=== PATIENT | female | born 1970 | race Caucasian/White ===

== ENCOUNTER 2020-08-21 00:43 | Emergency (ER) | payer OTHER ==
[~2020-08-21] VITALS: Ht 160 cm; Wt 100.0 kg
[~2020-08-21 00:43] MED LIST: ALLO100T PO; BUSP15TA PO; FAMO20TA5 PO; FLUD0.1T PO; FLUT9.9S NS; GABA-587 PO; HYDR-2145 PO; HYDR-3108 PO; LEVO88TA4 PO; LOPE2TAB27 PO
--- NOTE | 2020-08-21 01:18 | PHYS DOC ---
Past History Past Medical History: Asthma, Hypothyroid, Other Past Surgical History: Appendectomy, Tonsillectomy, Tubal ligation, Other Alcohol Use: None Drug Use: None General Adult EDM: Chief Complaint: CHEST PAIN HPI: HPI: 49-year-old female presents with sudden onset of central chest pain with started 1 hour prior to arrival. Patient had a snack of animal crackers and then went to lay down. As she was lying there she began to have a central chest heav iness. It is worse with deep breathing. She has some shortness of breath no diaphoresis. She has never had this pain before. It is moderate to severe in intensity. She took a full-strength aspirin prior to arrival. Patient has no cardiac history. She denies having a cardiac cath or stress test. Denies fever or chills. She had gastric sleeve November 2019. Review of Systems: Review of Systems: Constitutional: Denies fever or chills Eyes: Denies change in visual acuity HENT: Denies nasal congestion or sore throat Respiratory: shortness of breath Cardiovascular: Chest pain GI: Denies abdominal pain, nausea, vomiting, bloody stools or diarrhea : Denies dysuria Musculoskeletal: Denies back pain or joint pain Integument: Denies rash Neurologic: Denies headache, focal weakness or sensory changes Endocrine: Denies polyuria or polydipsia Lymphatic: Denies swollen glands Psychiatric: Denies depression or anxiety Allergies: Allergies: Allergies Coded Allergies Type Severity Reaction Last Updated Verified acetaminophen Allergy Intermediate Itching 08/02/14 Yes codeine Allergy Intermediate Rash 07/30/14 Yes hydrocodone Allergy Intermediate 08/21/20 Yes oxycodone Allergy Intermediate Itching 08/02/14 Yes Physical Exam: PE: Constitutional: Well developed, well nourished, morbidly obese, no acute distress, non-toxic appearance. [] HENT: Normocephalic, atraumatic, bilateral external ears normal, oropharynx mois t, no oral exudates, nose normal. [] Eyes: PERRLA, EOMI, conjunctiva normal, no discharge. [] Neck: Normal range of motion, no tenderness, supple, no stridor. [] Cardiovascular: Heart rate 78, regular rhythm, no murmur [] Lungs & Thorax: Bilateral breath sounds clear to auscultation [] Abdomen: Bowel sounds normal, soft, no tenderness, no masses, no pulsatile masses. [] Skin: Warm, dry, no erythema, no rash. [] Back: No tenderness, no CVA tenderness. [] Extremities: No tenderness, no cyanosis, no clubbing, ROM intact, no edema. [] Neurologic: Alert and oriented X 3, normal motor function, normal sensory function, no focal deficits noted. [] Psychologic: Affect normal, judgement normal, mood anxious. [] EKG: EKG: [] Radiology/Procedures: Radiology/Procedures: [] Heart Score: C/O Chest Pain: Yes HEART Score for Chest Pain: HEART Score for Chest Pain Response (Comments) Value History Slighlty/Non-Suspicious 0 ECG Nonspecific Repolarizatio 1 Age >45 - < 65 1 Risk Factors 1 or 2 Risk Factors 1 Troponin < Normal Limit 0 Total 3 Risk Factors: Risk Factors: DM, Current or recent (<one month) smoker, HTN, HLP, family history of CAD, obesity. Risk Scores: Score 0 - 3: 2.5% MACE over next 6 weeks - Discharge Home Score 4 - 6: 20.3% MACE over next 6 weeks - Admit for Clinical Observation Score 7 - 10: 72.7% MACE over next 6 weeks - Early Invasive Strategies Course & Med Decision Making: Course & Med Decision Making Pertinent Labs and Imaging studies reviewed. (See chart for details) The patient's EKG does not show ST elevation. Her labs are unremarkable. Her troponin was negative. Patient was given a GI cocktail on arrival and this significantly improved her pain. I suspect this is breakthrough GERD. I spoke with the patient about her results. She is feeling better. I offered her admission for continued trending of her troponins versus going home and she has elected to go home at this time. I have advised her that if her pain returns in a significant way or new symptoms develop she may need to come back to the emergency room. She has a reliable family member that lives with her and will be home with her all day later today. Her heart score is a 3. I believe it is reasonable for her to go home. I will additionally give the patient 20 mg of Pepcid prior to discharge. She is stable for discharge at this time. [] Soloon Disclaimer: Ryley Disclaimer: This electronic medical record was generated, in whole or in part, using a voice recognition dictation system. Departure Departure: Impression: Primary Impression: Chest pain Qualified Codes: R07.9 - Chest pain, unspecified Additional Impression: GERD (gastroesophageal reflux disease) Qualified Codes: K21.9 - Gastro-esophageal reflux disease without esophagitis Disposition: 01 HOME / SELF CARE / HOMELESS Condition: STABLE Referrals: RADHA SYED (PCP) Patient Instructions: Chest Pain (Nonspecific), [id number], Gastroesophageal Reflux Disease, Adult, [id number] MORRIS PICKERING DO Aug 21, 2020 01:18
[2020-08-21] MEDS: IV NORMAL SALINE 1,000ML 1,000 ML IV ONE (01:28)
[2020-08-21 01:29] LABS: HEMOGLOBIN ISTAT 12.2 gm/dL; POTASSIUM ISTAT 3.4 mmol/L (3.5-5.0)
[2020-08-21] MEDS: LIDO:MAALOX 1:1 20 ML SINGLE DOSE. PO ONE (01:30)
--- NOTE | 2020-08-21 01:37 | RAD ---
EXAM: AP View of the chest DATE: 08/21/2020 1:20 AM INDICATION: Reason: Chest pain / Spl. Instructions: / History: COMPARISON: No Prior FINDINGS: The heart is not enlarged. Mediastinal and hilar contours are normal. No focal parenchymal airspace opacity. No pleural effusion or pneumothorax. IMPRESSION: 1. No radiographic evidence for acute cardiopulmonary process. Electronically signed by: Ezekiel De La Cruz MD (08/21/2020 1:35 AM) ASHLEIGH
[2020-08-21 01:55] LABS: BASO % 1 % (0-3); EOS # 0.2 x10^3/uL (0.0-0.7); EOS % 4 % (0-3); HEMATOCRIT 40.3 % (36.0-47.0); HEMOGLOBIN 13.8 g/dL (12.0-15.5); LYMPH # 1.8 x10^3/uL (1.0-4.8); LYMPH % 32 % (24-48); MEAN CORPUSCULAR HEMOGLOBIN 31 pg (25-35); MEAN CORPUSCULAR HGB CONC 34 g/dL (31-37); MEAN CORPUSCULAR VOLUME 90 fL (79-100); MONO # 0.4 x10^3/uL (0.0-1.1); MONO % 8 % (0-9); NEUT # 3.2 x10^3uL (1.8-7.7); NEUT % 56 % (31-73); PLATELET COUNT 211 x10^3/uL (140-400); RED BLOOD COUNT 4.46 x10^6/uL (3.50-5.40); WHITE BLOOD COUNT 5.6 x10^3/uL (4.0-11.0)
[2020-08-21] MEDS: NITROGLYCERIN SUBLINGUAL 0.4 MG BOTTLE OF 25. SL PRN (02:33)
[2020-08-21 02:38] VITALS: BP 110/64
[2020-08-21] MEDS ORDERED: FAMOTIDINE 20 MG/2 ML VIAL IVP ONE (03:00)
--- NOTE | 2020-08-21 04:50 | EKG ---
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
== END 2020-08-21 02:44 | disposition home or self-care (01) ==
LOC: ER 00:43
DX: R07.89 Other chest pain (principal); K21.9 Gastro-esophageal reflux disease without esophagitis; J45.909 Unspecified asthma, uncomplicated; Z88.6 Allergy status to analgesic agent; Z88.5 Allergy status to narcotic agent; Z98.51 Tubal ligation status
CPT/HCPCS: 36415; 71045; 80047; 84484; 85025; 93005; 96360; 99285; J7030

== ENCOUNTER 2020-11-20 23:55 | Emergency (ER) | payer OTHER ==
[~2020-11-20] VITALS: Ht 160 cm; Wt 98.0 kg
--- NOTE | 2020-11-21 00:07 | PHYS DOC ---
Past History Past Medical History: Asthma, Constipation, Hypothyroid, Other Past Surgical History: Appendectomy, Tonsillectomy, Tubal ligation, Other Additional Past Surgical Histo: Gastric Sleeve Alcohol Use: None Drug Use: None General Adult EDM: Chief Complaint: ABDOMINAL PAIN HPI: HPI: "..I am having severe abdomen pain.. here in my epigastric.. and to the right.. its like some is stabbing me through my stomach clear to my back... And into my right shoulder... I had a gastric sleeve surgery last year in nov.. maybe something is wrong there...". " I took some that Levsin... and even took two..and I am no better..." Patient is a 50 year old female dependent who presents with above hx and complaints severe epigastric and right upper quadrant pain. Patient rates the pain as 9-10 out of 10. Patient states pain radiates into her back and right shoulder. Patient did take some antispasmodic meds Levsin with no relief of symptoms. Patient states pain started after eating a half of a hamburger. Pain persisted through the night. Patient has had severe nausea and vomiting. Patient states she has had intermittent episodes of this pain but not as severe. Patient states she has previously had normal stools and is passing gas. Patient denies any intake of specific bad foods. No recent travel. No specific ill contacts. Patient denies any trauma. Patient has had previous abdomen surgery most recent a gastric sleeve placement in December 04, 2019. Patient patient states she has had no significant problems with this bariatric surgery. Patient is also had appendectomy and tubal ligations. Patient has significant medical history of asthma, hypothyroidism, morbid obesity, diabetes, GERD,. Patient has had COVID vaccinations Moderna x 2. There is a significant family history of coronary artery disease with father stents and triple vessel bypass by age 55. Mother is also has history of cardiac disorders. Patient normally follows with Dr. Jackson as a primary Review of Systems: Review of Systems: Constitutional: Denies fever or chills Eyes: Denies change in visual acuity HENT: Denies nasal congestion or sore throat Respiratory: Denies cough or shortness of breath Cardiovascular: Denies chest pain or edema GI: Complains of severe epigastric abdominal pain, nausea, vomiting,. Denies bloody stools or diarrhea : Denies dysuria Musculoskeletal: Denies back pain or joint pain Integument: Denies rash Neurologic: Denies headache, focal weakness or sensory changes Endocrine: Denies polyuria or polydipsia Lymphatic: Denies swollen glands Psychiatric: Denies depression or anxiety Family History: Family History: Coronary artery disease with mother and father. Starting at age 55 Current Medications: Current Meds: See nursing for home meds Allergies: Allergies: Allergies Coded Allergies Type Severity Reaction Last Updated Verified acetaminophen Allergy Intermediate Itching 08/02/14 Yes codeine Allergy Intermediate Rash 07/30/14 Yes hydrocodone Allergy Intermediate 08/21/20 Yes oxycodone Allergy Intermediate Itching 08/02/14 Yes Physical Exam: PE: Constitutional: in acute distress, ill in appearance. [] HENT: Normocephalic, atraumatic, bilateral external ears normal, oropharynx moist, no oral exudates, nose normal. [] Eyes: PERRLA, EOMI, conjunctiva normal, no discharge. [] Neck: Normal range of motion, no tenderness, supple, no stridor. [] PMI slightly to the left Cardiovascular:Heart rate regular rhythm, no murmur [] Lungs & Thorax: Bilateral breath sounds equal apex bilaterally with some basilar crackles laterally auscultation [] Abdomen: Bowel sounds decreased, soft, epigastric and right upper quadrant tenderness, no masses, no pulsatile masses. Rebound to right upper quadrant. Old surgery scars. Distended. Skin: Warm, diaphoretic, no erythema, no rash. [] Back: No tenderness, no CVA tenderness. [] Extremities: No tenderness, no cyanosis, no clubbing, ROM intact, no edema. No cording appreciated. No psoas sign. Neurologic: Alert and oriented X 3, patient moves all extremities on request. Does have distal sensory. No focal deficits noted. [] Psychologic: Affect anxious, judgement normal, mood depressed and tearful EKG: EKG: My interpretation EKG shows a sinus rhythm at 66 bpm. Mild leftward axis. No acute morphology or findings of acute STEMI. [] Radiology/Procedures: Radiology/Procedures: [][address] [address] IMAGING REPORT Signed PATIENT: SARAH TOBIN ACCOUNT: [id number] : 1970 LOCATION: ER AGE: 50 SEX: F EXAM STATUS: REG ER ORD. PHYSICIAN: JANET ERNST MD REASON: OMNI 300,75ML IV.OMNI 240,30ML PO.Pain, elevated LFT's.HX SLEEVE PROCEDURE: CT ABD PELV W/ORAL&IV CONTRAST Exam: CT abdomen/pelvis without intravenous contrast Indication: Abdominal pain, elevated LFTs, history of gastric sleeve Comparison: CT abdomen and pelvis 07/04/2017 Technique: Helical CT imaging performed of the abdomen and pelvis without the use of intravenous contrast. Sagittal and coronal reformats were obtained. One or more of the following individualized dose reduction techniques were utilized for this examination: 1. Automated exposure control 2. Adjustment of the mA and/or kV according to patient size 3. Use of iterative reconstruction technique. Findings: Inherently limited evaluation without intravenous contrast. Lower chest: Lung bases are clear. The heart is normal in size. Liver: The liver is normal. Gallbladder/Biliary Tree: There are small calculi layering in the gallbladder lumen. Common bile duct is at the upper limit of normal in caliber. Pancreas: Normal. Spleen: Normal. Adrenal Glands: Normal. Kidneys/Ureters/Bladder: Kidneys are normal in size and enhance symmetrically. There are bilateral subcentimeter hypodensities. Ureters and bladder are normal. Reproductive Organs: Uterus is anteverted. No adnexal mass. Stomach, small bowel, and colon: There are surgical changes of gastric sleeve. No small bowel obstruction. The appendix is surgically absent. Colon is normal. Vasculature: Abdominal aorta is normal in caliber. Lymph Nodes: No lymphadenopathy. Peritoneum and retroperitoneum: No free fluid or free air. Bones: No acute osseous abnormality Impression: 1. Cholelithiasis. 2. Common bile duct appears prominent but still within normal limits. If there is concern for acute gallbladder or biliary ductal pathology, consider right upper quadrant ultrasound. Electronically signed by: Ada Fair MD (11/21/2020 5:12 AM) [id number] DICTATED AND SIGNED BY: ADA FAIR MD DATE: 11/21/20 0507 CC: JANET ERNST MD; RADHA JACKSON ~MTH0 0 [facility] [address] [place] [id number] IMAGING REPORT Signed PATIENT: SARAH TOBIN ACCOUNT: [id number] : 1970 LOCATION: ER AGE: 50 SEX: F EXAM STATUS: REG ER ORD. PHYSICIAN: JANET ERNST MD REASON: pain PROCEDURE: ACUTE ABDOMEN SERIES EXAM: XR ABDOMEN COMP ACUTE 11/21/2020 1:27 AM CLINICAL INDICATION: Pain COMPARISON: None TECHNIQUE: AP supine and upright view of the abdomen and PA view of the chest FINDINGS: Bowel gas pattern is nonspecific and nonobstructive. Large volume of stool. There is suture material in the left upper quadrant and right lower quadrant. No pneumoperitoneum. The heart and mediastinum are normal. Lungs are well-expanded and clear. No pleural effusion or pneumothorax. No acute osseous abnormality. IMPRESSION: No small bowel obstruction. Large volume of stool. Electronically signed by: Ada Fair MD (11/21/2020 2:15 AM) [id number] DICTATED AND SIGNED BY: ADA FAIR MD DATE: 11/21/20 0213 CC: JANET ERNST MD; RADHA JACKSON D ~MTH0 0 Heart Score: C/O Chest Pain: N/A HEART Score for Chest Pain: HEART Score for Chest Pain Response (Comments) Value History Slighlty/Non-Suspicious 0 ECG Normal 0 Age >45 - < 65 1 Risk Factors 1 or 2 Risk Factors 1 Troponin < Normal Limit 0 Total 2 Risk Factors: Risk Factors: DM, Current or recent (<one month) smoker, HTN, HLP, family history of CAD, obesity. Risk Scores: Score 0 - 3: 2.5% MACE over next 6 weeks - Discharge Home Score 4 - 6: 20.3% MACE over next 6 weeks - Admit for Clinical Observation Score 7 - 10: 72.7% MACE over next 6 weeks - Early Invasive Strategies Course & Med Decision Making: Course & Med Decision Making Pertinent Labs and Imaging studies reviewed. (See chart for details) Patient received Pepcid, Zofran, Toradol, morphine, and fluid boluses with marked improvement of overall diffuse abdomen discomfort. Discussed presentation, testing, treatment plan with - associate application developer for - [phone]. Advised to allow patient be on a clear fluid diet and he would attempt to have patient scheduled for cholecystectomy this coming week. Call also placed at area hospitals but no current beds and no local hospitals excepting patients. I discussion with patient Dr. Ko recommendation possible cholecystectomy this next week. Patient to be discharged on Keflex 500 mg 3 times a day. Take Pepcid 20 mg twice a day. Patient take Zofran 8 up to 4 times a day for nausea and vomiting. Take Vicoprofen up to 4 times a day for marked pain. Stay on a clear fluid diet. No milk products. No solids. Must allow bowel rest. Patient to obtain Impression: 1. Acute abdomen pain 2. Biliary colic/gallstones 3. Elevated LFTs-total bilirubin 1.3, direct 0.7, AST 226, ALT 151, alk phos 125 4. History of gastric sleeve placement November 5. Obese 6. Constipation [] Dragon Disclaimer: Dragon Disclaimer: This electronic medical record was generated, in whole or in part, using a voice recognition dictation system. Departure Departure: Referrals: RADHA JACKSON (PCP) Scripts Tramadol Hcl (TRAMADOL HCL) 50 Mg Tablet 50 MG PO PRN Q6HRS PRN for PAIN, #15 TAB Prov: MORRIS PICKERING DO 11/21/20 Cephalexin (KEFLEX) 500 Mg Capsule 500 MG PO TID for cholecytitis for 7 Days, #21 CAP Prov: JANET ERNST MD 11/21/20 Hydrocodone/Ibuprofen (HYDROCODONE-IBUPROFEN 7.5-200 ) 1 Each Tablet 1 TAB PO PRN Q6HRS PRN for PAIN, #30 TAB 0 Refills Prov: JANET ERNST MD 11/21/20 Ondansetron Hcl (ZOFRAN) 4 Mg Tablet 8 MG PO QIDPRN PRN for NAUSEA/VOMITING, #30 TAB Prov: JANET ERNST MD 11/21/20 Famotidine (PEPCID) 20 Mg Tablet 1 TAB PO BID for GERD, #60 TAB 3 Refills Prov: JANET ERNST MD 11/21/20 Ryley Disclaimer This chart was dictated in whole or in part using Voice Recognition software in a busy, high-work load, and often noisy Emergency Department environment. It may contain unintended and wholly unrecognized errors or omissions. JANET ERNST MD Nov 21, 2020 00:07
[2020-11-21] MEDS ORDERED: KETOROLAC 30 MG/ML VIAL. IVP ONE (00:15)
[2020-11-21] MEDS ORDERED: ONDANSETRON PF 4 MG/2 ML VIAL. IVP ONE (00:15)
[2020-11-21] MEDS ORDERED: IV RINGERS SOLUTION,LACTATED 1,000 ML IV SCH (00:15)
[2020-11-21] MEDS ORDERED: FAMOTIDINE 20 MG/2 ML VIAL IVP ONE (00:15)
[2020-11-21] MEDS ORDERED: MORPHINE SULFATE 10 MG/ML SYRINGE. SQ ONE ×2 (00:45→06:00)
[2020-11-21 01:17] LABS: BASO % 0 % (0-3); EOS # 0.1 x10^3/uL (0.0-0.7); EOS % 1 % (0-3); HEMATOCRIT 42.6 % (36.0-47.0); HEMOGLOBIN 14.6 g/dL (12.0-15.5); LYMPH # 0.9 x10^3/uL (1.0-4.8); LYMPH % 10 % (24-48); MEAN CORPUSCULAR HEMOGLOBIN 31 pg (25-35); MEAN CORPUSCULAR HGB CONC 34 g/dL (31-37); MEAN CORPUSCULAR VOLUME 90 fL (79-100); MONO # 0.3 x10^3/uL (0.0-1.1); MONO % 3 % (0-9); NEUT # 7.8 x10^3uL (1.8-7.7); NEUT % 86 % (31-73); PLATELET COUNT 238 x10^3/uL (140-400); RED BLOOD COUNT 4.76 x10^6/uL (3.50-5.40); RED CELL DISTRIBUTION WIDTH 13.8 % (11.5-14.5); WHITE BLOOD COUNT 9.1 x10^3/uL (4.0-11.0)
[2020-11-21 01:26] LABS: CALCIUM 9.4 mg/dL (8.5-10.1); CREATININE 0.8 mg/dL (0.6-1.0); GFR 75.9; POTASSIUM 4.1 mmol/L (3.5-5.1)
[2020-11-21 01:31] LABS: ALBUMIN 4.3 g/dL (3.4-5.0); DIRECT BILIRUBIN 0.7 mg/dL (0.0-0.2); TOTAL BILIRUBIN 1.3 mg/dL (0.2-1.0); TOTAL PROTEIN 6.9 g/dL (6.4-8.2)
--- NOTE | 2020-11-21 01:38 | EKG ---
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
[2020-11-21] MEDS ORDERED: IOHEXOL 240 MG/ML 50ML VIAL. ONE (02:14)
[2020-11-21] MEDS ORDERED: IOHEXOL 300 MG/ML 75 ML VIAL. IV ONE (02:15)
[2020-11-21] MEDS ORDERED: CONTRAST GIVEN. MC PRN (02:15)
--- NOTE | 2020-11-21 02:18 | RAD ---
EXAM: XR ABDOMEN COMP ACUTE 11/21/2020 1:27 AM CLINICAL INDICATION: Pain COMPARISON: None TECHNIQUE: AP supine and upright view of the abdomen and PA view of the chest FINDINGS: Bowel gas pattern is nonspecific and nonobstructive. Large volume of stool. There is sutur e material in the left upper quadrant and right lower quadrant. No pneumoperitoneum. The heart and me diastinum are normal. Lungs are well-expanded and clear. No pleural effusion or pneumothorax. No acut e osseous abnormality. IMPRESSION: No small bowel obstruction. Large volume of stool. Electronically signed by: Ada Fair MD (11/21/2020 2:15 AM) [id number]
[2020-11-21 02:58] LABS: BARBITURATES NEG (NEG); BENZODIAZEPINES NEG (NEG); CANNABINOIDS NEG (NEG); COCAINE NEG (NEG); METHADONE NEG (NEG); OPIATES POS (NEG); PHENCYCLIDINE NEG (NEG)
[2020-11-21] MEDS ORDERED: MAGNESIUM HYDROXIDE 2,400 MG/30 ML ORAL.SUSP. PO ONE (03:00)
[2020-11-21 03:02] LABS: BILIRUBIN,URINE NEG (NEG); CLARITY,URINE CLEAR; COLOR,URINE YELLOW; GLUCOSE,URINE NEG (NEG)
[2020-11-21 03:03] LABS: BACTERIA,URINE FEW /HPF (0-FEW); NITRITE,URINE NEG (NEG); RBC,URINE 0 /HPF (0-2); SQUAMOUS EPITHELIAL CELL,UR MOD /LPF
[2020-11-21 03:20] LABS: AMPHETAMINE/METHAMPHETAMINE NEG (NEG)
--- NOTE | 2020-11-21 05:14 | RAD ---
Exam: CT abdomen/pelvis without intravenous contrast Indication: Abdominal pain, elevated LFTs, history of gastric sleeve Comparison: CT abdomen and pelvis 07/04/2017 Technique: Helical CT imaging performed of the abdomen and pelvis without the use of intravenous cont rast. Sagittal and coronal reformats were obtained. One or more of the following individualized dose reduction techniques were utilized for this examinat ion: 1. Automated exposure control 2. Adjustment of the mA and/or kV according to patient size 3. Use of iterative reconstruction technique. Findings: Inherently limited evaluation without intravenous contrast. Lower chest: Lung bases are clear. The heart is normal in size. Liver: The liver is normal. Gallbladder/Biliary Tree: There are small calculi layering in the gallbladder lumen. Common bile duct is at the upper limit of normal in caliber. Pancreas: Normal. Spleen: Normal. Adrenal Glands: Normal. Kidneys/Ureters/Bladder: Kidneys are normal in size and enhance symmetrically. There are bilateral judd bcentimeter hypodensities. Ureters and bladder are normal. Reproductive Organs: Uterus is anteverted. No adnexal mass. Stomach, small bowel, and colon: There are surgical changes of gastric sleeve. No small bowel obstruc tion. The appendix is surgically absent. Colon is normal. Vasculature: Abdominal aorta is normal in caliber. Lymph Nodes: No lymphadenopathy. Peritoneum and retroperitoneum: No free fluid or free air. Bones: No acute osseous abnormality Impression: 1. Cholelithiasis. 2. Common bile duct appears prominent but still within normal limits. If there is concern for acute g allbladder or biliary ductal pathology, consider right upper quadrant ultrasound. Electronically signed by: Ada Fair MD (11/21/2020 5:12 AM) [id number]
[2020-11-21] MEDS ORDERED: cefTRIAXone SODIUM 1 GM VIAL ONE (06:14)
[2020-11-21] MEDS ORDERED: IV NORMAL SALINE 50ML 50 ML ONE (06:14)
[2020-11-21] MEDS ORDERED: FAMO-63 PO (06:33)
[2020-11-21] MEDS ORDERED: HYDR-1179 PO (06:33)
[2020-11-21] MEDS ORDERED: ONDA4TAB7 PO (06:33)
[2020-11-21] MEDS ORDERED: CEPH500C PO (06:33)
[2020-11-21] MEDS ORDERED: IV RINGERS SOLUTION,LACTATED 1,000 ML IV ONE (08:00)
[2020-11-21 08:09] VITALS: BP 103/56
[2020-11-21] MEDS ORDERED: TRAM50TA PO (08:20)
== END 2020-11-21 08:25 | disposition home or self-care (01) ==
LOC: ER 23:55
DX: K59.00 Constipation, unspecified (principal); E66.9 Obesity, unspecified; R79.89 Other specified abnormal findings of blood chemistry; R10.13 Epigastric pain; J45.909 Unspecified asthma, uncomplicated; E03.9 Hypothyroidism, unspecified; Z68.38 Body mass index [BMI] 38.0-38.9, adult; Z90.89 Acquired absence of other organs; Z98.51 Tubal ligation status; Z88.5 Allergy status to narcotic agent; Z88.8 Allergy status to other drugs, medicaments and biological substances
CPT/HCPCS: 36415; 74022; 74177; 80048; 80076; 80307; 81001; 82150; 82550; 83690; 84484; 85025; 87086; 93005; 96361; 96365; 96367; 96372; 96375; 99285; J0696; J1885; J2270; J2405; J3490; J7120; Q9967